=== PATIENT | male | born 1970 | race Caucasian/White ===

== ENCOUNTER 2024-02-11 10:56 | Emergency (ER) | payer OTHER ==
[~2024-02-11] VITALS: Ht 185.4 cm; Wt 80.3 kg
[2024-02-11] MEDS: TETanus/Pertussis (Acell)/Diphther VAC/PF (Tdap-Adult) 0.5ml syringe IMVAC ONE (11:31)
[2024-02-11 12:16] VITALS: BP 112/73; PULSE 63; RESP 16; TEMP 98.3; O2SAT 99
== END 2024-02-11 12:22 | disposition home or self-care (01) ==
LOC: ER 10:57
DX: S61.213A Laceration without foreign body of left middle finger without damage to nail, initial encounter (principal); W26.0XXA Contact with knife, initial encounter; Y93.89 Activity, other specified; Y92.89 Other specified places as the place of occurrence of the external cause; Y99.8 Other external cause status; Z23 Encounter for immunization
CPT/HCPCS: 12001; 90471; 90715; 99283; J7030; A6449